=== PATIENT | female | born 1965 | race Caucasian/White ===

== ENCOUNTER 2019-06-03 11:45 | Outpatient (CLI) | payer MEDICARE, SELFPAY ==
[2019-06-03 12:58] LABS: Alanine Aminotransferase 37 U/L (4-35); Albumin Level 4.8 g/dL (3.5-5.1); Alkaline Phosphatase 144 U/L (38-126); Aspartate Amino Transferase 38 U/L (14-36); Bilirubin,Total 0.3 mg/dL (0.2-1.3); Blood Urea Nitrogen 10 mg/dL (7-17); Calcium 10.2 mg/dL (8.4-10.2); Carbon Dioxide 22 mmol/L (22-30); Chloride 100 mmol/L (98-107); Cholesterol 229 mg/dL (0-200); Estimated Glomerular Filt Rate > 60; Glucose 104 mg/dL (65-105); HDL Direct 56 mg/dL; Potassium 3.7 mmol/L (3.4-5.0); Sodium 135 mmol/L (137-145); Triglycerides 218 mg/dL (<150)
[2019-06-03 13:09] LABS: LDL Cholesterol Direct 154 mg/dL
[2019-06-03 13:28] LABS: Thyroid Stimulating Hormone 0.028 uIU/mL (0.465-4.680)
[2019-06-03 13:36] LABS: Vitamin D 25 Hydroxy 27.3 ng/mL
== END 2019-06-03 11:46 | disposition home or self-care (01) ==
PROVIDERS: PCP Emergency Medicine; Visit Provider Emergency Medicine
DX: E78.2 Mixed hyperlipidemia (principal); R53.83 Other fatigue; E55.9 Vitamin D deficiency, unspecified
CPT/HCPCS: 36415; 80053; 80061; 82306; 84443

== ENCOUNTER 2019-06-23 08:18 | Outpatient (CLI) | payer MEDICARE, SELFPAY ==
--- NOTE | ~2019-06-23 | US_ITS ---
EXAMINATION: US thyroid DATE: 06/23/2019 08:56 INDICATION: Abnormal thyroid labs TECHNIQUE: Multiple ultrasound images of the thyroid were obtained. COMPARISON: None. FINDINGS: The right thyroid lobe measures 4.7 x 2.6 x 1.8 cm. The left thyroid lobe measures 4.6 x 2.0 x 2.1 c m. Predominantly solid hypoechoic well-defined wider than tall nodules without echogenic foci in bot h the left and right thyroid lobes (TI-RADS 4, moderately suspicious , FNA if >=1.5 cm, annual follow up is >1 cm) measuring up to 9 mm in maximal dimensions in the right thyroid lobe and 9 mm and 7 mm i n the left thyroid lobe. There is normal echotexture, echogenicity and vascular flow throughout the t hyroid gland. IMPRESSION: 1. Subcentimeter bilateral TI-RADS 4 thyroid nodules which do not exceed size criteria for either bio psy or follow-up. Reviewed, dictated and finalized at location A. CLOSER IMPRESSION: 1. Subcentimeter bilateral TI-RADS 4 thyroid nodules which do not exceed size c riteria for either biopsy or follow-up.
[2019-06-23 10:11] LABS: Free T4 Free Thyroxine 1.35 ng/mL (0.78-2.19)
== END 2019-06-23 08:19 | disposition home or self-care (01) ==
LOC: ANHIMG 08:22
PROVIDERS: PCP Emergency Medicine; Visit Provider Emergency Medicine
DX: E04.2 Nontoxic multinodular goiter (principal); R94.6 Abnormal results of thyroid function studies; R79.89 Other specified abnormal findings of blood chemistry
CPT/HCPCS: 36415; 76536; 84439; 84443

== ENCOUNTER 2020-07-02 10:03 | Outpatient (CLI) | payer MEDICARE, SELFPAY ==
--- NOTE | ~2020-07-02 | MM_ITS ---
EXAMINATION: MM screening [facility] BI w july HISTORY: Screening TECHNIQUE: Craniocaudal and mediolateral oblique 3-D tomosynthesis images were obtained and synthetic 2-D images were generated. CAD analysis was submitted and interpreted. COMPARISON: 03/05/2019 BREAST PARENCHYMAL COMPOSITION: The breasts are heterogenously dense, which may obscure small masses. FINDINGS: There is no evidence of suspicious mass, calcification, or architectural distortion to sugg est malignancy in either breast. There has been no suspicious interval change. IMPRESSION: 1. No mammographic evidence of malignancy. 2. Recommend routine screening mammography in one year. BI-RADS Category 1: Negative Reviewed, dictated and finalized at location A. BASEBALL SEWER
[2020-07-02 10:26] LABS: Thyroid Stimulating Hormone 0.446 uIU/mL (0.465-4.680)
[2020-07-02 11:23] LABS: Alanine Aminotransferase 78 U/L (4-35); Albumin Level 4.3 g/dL (3.5-5.1); Alkaline Phosphatase 132 U/L (38-126); Anion Gap 9 mmol/L (8-16); Aspartate Amino Transferase 78 U/L (14-36); Bilirubin,Total 0.4 mg/dL (0.2-1.3); Blood Urea Nitrogen 10 mg/dL (7-17); Calcium 9.6 mg/dL (8.4-10.2); Carbon Dioxide 23 mmol/L (22-30); Chloride 106 mmol/L (98-107); Cholesterol 220 mg/dL (0-200); Estimated Glomerular Filt Rate > 60; Glucose 159 mg/dL (65-105); HDL Direct 49 mg/dL; Potassium 3.6 mmol/L (3.4-5.0); Sodium 138 mmol/L (137-145); Triglycerides 132 mg/dL (<150)
[2020-07-02 11:36] LABS: LDL Cholesterol Direct 151 mg/dL
== END 2020-07-02 10:04 | disposition home or self-care (01) ==
PROVIDERS: PCP Emergency Medicine; Visit Provider Emergency Medicine
DX: Z12.31 Encounter for screening mammogram for malignant neoplasm of breast (principal); R79.89 Other specified abnormal findings of blood chemistry; E78.5 Hyperlipidemia, unspecified
CPT/HCPCS: 36415; 77063; 77067; 80053; 80061; 84443

== ENCOUNTER 2020-10-06 12:35 | Outpatient (CLI) | payer MEDICARE, SELFPAY ==
[2020-10-06 13:27] LABS: T4 Thyroxine 9.21 ug/dL (5.53-11.0)
[2020-10-06 13:38] LABS: Free T4 Free Thyroxine 0.92 ng/mL (0.78-2.19)
[2020-10-06 13:41] LABS: Thyroid Stimulating Hormone < 0.015 uIU/mL (0.465-4.680)
[2020-10-06 14:53] LABS: Erythrocyte Sedimentation Rate 6 mm/hr (0-20)
[2020-10-08 18:21] LABS: Thyrotropin Receptor Antibody 1.18 IU/L (<=2.00)
[2020-10-09 05:04] LABS: Thyroid Peroxidase Antibodies 1 IU/mL (<9)
== END 2020-10-06 12:36 | disposition home or self-care (01) ==
PROVIDERS: PCP Emergency Medicine; Visit Provider Internal Medicine Endocrinology, Diabetes & Metabolism
DX: E05.90 Thyrotoxicosis, unspecified without thyrotoxic crisis or storm (principal)
CPT/HCPCS: 36415; 83519; 84436; 84439; 84443; 84480; 85652; 86376

== ENCOUNTER 2020-10-11 16:14 | Outpatient (CLI) | payer MEDICARE, SELFPAY ==
--- NOTE | ~2020-10-11 | US_ITS ---
US thyroid INDICATION: Dysphasia and enlarged thyroid. TECHNIQUE: Real-time sonographic images of the thyroid gland were obtained. COMPARISON: Ultrasound dated 06/23/2019 FINDINGS: The right thyroid lobe measures 3.5 x 2.5 x 1.5 cm. The left thyroid lobe measures 4.5 x 2 x 1.5 cm. There are bilateral solid hypoechoic well-defined masses in both lobes which are wider good n tall without echogenic foci, TIRads 4. Largest in the right lobe measures 8 mm maximum dimension an d on the left measures 1 cm. No significant interval change. There is normal vascular flow in both lo bes. IMPRESSION: 1. . Stable centimeter or less bilateral TI-Rads for thyroid nodules which do not exceed size criter ia for biopsy. Follow-up thyroid ultrasound in 12 months recommended. Reviewed, dictated and finalized at location A. IMPRESSION: 1. . Stable centimeter or less bilateral TI-Rads for thyroid nodules which do not exceed size criteria for biopsy. Follow-up thyroid ultrasound in 12 months recommended.
== END 2020-10-11 16:15 | disposition home or self-care (01) ==
PROVIDERS: PCP Emergency Medicine; Visit Provider Internal Medicine Endocrinology, Diabetes & Metabolism
DX: E04.1 Nontoxic single thyroid nodule (principal)
CPT/HCPCS: 76536

== ENCOUNTER 2020-12-28 10:21 | Outpatient (CLI) | payer MEDICARE, SELFPAY ==
[2020-12-28 11:09] LABS: Alanine Aminotransferase 49 U/L (4-35); Albumin Level 4.6 g/dL (3.5-5.1); Alkaline Phosphatase 145 U/L (38-126); Anion Gap 9 mmol/L (8-16); Aspartate Amino Transferase 40 U/L (14-36); Bilirubin,Total 0.4 mg/dL (0.2-1.3); Blood Urea Nitrogen 10 mg/dL (7-17); Calcium 9.3 mg/dL (8.4-10.2); Carbon Dioxide 22 mmol/L (22-30); Chloride 105 mmol/L (98-107); Cholesterol 221 mg/dL (0-200); Estimated Glomerular Filt Rate > 60; Glucose 139 mg/dL (65-110); HDL Direct 58 mg/dL; Sodium 136 mmol/L (137-145); Triglycerides 149 mg/dL (<150)
[2020-12-28 11:20] LABS: LDL Cholesterol Direct 120 mg/dL
[2020-12-28 11:35] LABS: Thyroid Stimulating Hormone 0.457 uIU/mL (0.465-4.680); Total Triiodothyronine (T3) 1.37 NG/ML (0.97-1.69)
== END 2020-12-28 10:22 | disposition home or self-care (01) ==
PROVIDERS: PCP Emergency Medicine; Referring Provider Internal Medicine Endocrinology, Diabetes & Metabolism; Visit Provider Emergency Medicine
DX: E05.90 Thyrotoxicosis, unspecified without thyrotoxic crisis or storm (principal); Z13.220 Encounter for screening for lipoid disorders; Z13.6 Encounter for screening for cardiovascular disorders
CPT/HCPCS: 36415; 80053; 80061; 84439; 84443; 84480

== ENCOUNTER 2021-02-16 08:07 | Outpatient (CLI) | payer MEDICARE, SELFPAY ==
[2021-02-16 09:45] LABS: Free T4 Free Thyroxine 0.92 ng/mL (0.78-2.19)
== END 2021-02-16 08:08 | disposition home or self-care (01) ==
PROVIDERS: PCP Emergency Medicine; Visit Provider Internal Medicine Endocrinology, Diabetes & Metabolism
DX: E05.90 Thyrotoxicosis, unspecified without thyrotoxic crisis or storm (principal)
CPT/HCPCS: 36415; 84439; 84443

== ENCOUNTER 2021-07-06 11:14 | Outpatient (CLI) | payer MEDICARE, SELFPAY ==
[2021-07-06 12:09] LABS: Hemoglobin A1C 7.4 % (<5.7)
[2021-07-06 12:14] LABS: Alanine Aminotransferase 35 U/L (4-35); Albumin Level 4.8 g/dL (3.5-5.1); Alkaline Phosphatase 158 U/L (38-126); Anion Gap 9 mmol/L (8-16); Aspartate Amino Transferase 33 U/L (14-36); Bilirubin,Total 0.4 mg/dL (0.2-1.3); Blood Urea Nitrogen 10 mg/dL (7-17); Calcium 9.8 mg/dL (8.4-10.2); Carbon Dioxide 25 mmol/L (22-30); Chloride 100 mmol/L (98-107); Cholesterol 216 mg/dL (0-200); Estimated Glomerular Filt Rate > 60; Glucose 146 mg/dL (65-110); HDL Direct 50 mg/dL; Potassium 3.8 mmol/L (3.4-5.0); Sodium 134 mmol/L (137-145); Triglycerides 213 mg/dL (<150)
[2021-07-06 12:24] LABS: LDL Cholesterol Direct 129 mg/dL
== END 2021-07-06 11:15 | disposition home or self-care (01) ==
LOC: ANHLAB 11:18
PROVIDERS: PCP Emergency Medicine; Visit Provider Emergency Medicine
DX: Z13.6 Encounter for screening for cardiovascular disorders (principal); R73.9 Hyperglycemia, unspecified
CPT/HCPCS: 36415; 80053; 80061; 83036

== ENCOUNTER 2021-07-28 10:25 | Outpatient (CLI) | payer MEDICARE, SELFPAY ==
--- NOTE | ~2021-07-28 | MM_ITS ---
EXAMINATION: MM screening [facility] BI w july HISTORY: Screening mammogram TECHNIQUE: Craniocaudal and mediolateral oblique 3-D tomosynthesis images were obtained and synthetic 2-D images were generated. CAD analysis was submitted and interpreted. COMPARISON: 07/02/2020, 03/05/2019 BREAST PARENCHYMAL COMPOSITION: The breasts are heterogeneously dense, which may obscure small masses . FINDINGS: There is no suspicious mass, calcification, or architectural distortion to suggest malignan cy in either breast. There has been no suspicious interval change. IMPRESSION: 1. No mammographic evidence of malignancy. 2. Recommend routine screening mammography in one year. BI-RADS Category 1: Negative Reviewed, dictated and finalized at location A.
== END 2021-07-28 10:26 | disposition home or self-care (01) ==
LOC: ANHIMG 10:28
PROVIDERS: PCP Emergency Medicine; Visit Provider Emergency Medicine
DX: Z12.31 Encounter for screening mammogram for malignant neoplasm of breast (principal)
CPT/HCPCS: 77063; 77067

== ENCOUNTER 2021-11-30 08:09 | Outpatient (CLI) | payer MEDICARE, SELFPAY ==
[2021-11-30 08:55] LABS: Alanine Aminotransferase 36 U/L (6-35); Albumin Level 4.8 g/dL (3.5-5.1); Alkaline Phosphatase 137 U/L (38-126); Anion Gap 11 mmol/L (8-16); Aspartate Amino Transferase 31 U/L (14-36); Bilirubin,Total 0.4 mg/dL (0.2-1.3); Blood Urea Nitrogen 9 mg/dL (7-17); Calcium 9.4 mg/dL (8.4-10.2); Carbon Dioxide 24 mmol/L (22-30); Chloride 103 mmol/L (98-107); Estimated Glomerular Filt Rate > 60; Glucose 170 mg/dL (65-110); Potassium 4.2 mmol/L (3.4-5.0); Sodium 138 mmol/L (137-145)
[2021-11-30 09:22] LABS: Free T4 Free Thyroxine 1.14 ng/mL (0.78-2.19)
[2021-12-05 13:55] LABS: Thyroid Stimulating Immunoglob <89 % baseline (<140)
== END 2021-11-30 08:10 | disposition home or self-care (01) ==
PROVIDERS: PCP Emergency Medicine; Visit Provider Internal Medicine Endocrinology, Diabetes & Metabolism
DX: E04.1 Nontoxic single thyroid nodule (principal); E05.90 Thyrotoxicosis, unspecified without thyrotoxic crisis or storm; R74.01 Elevation of levels of liver transaminase levels
CPT/HCPCS: 36415; 80053; 84439; 84443; 84445

== ENCOUNTER 2022-02-21 00:20 | Day surgery (SDC) | payer MEDICARE, SELFPAY ==
[2022-02-08 14:53] VITALS: BMI 35.1
[2022-02-21 10:57] VITALS: BP 138/63; PULSE 89; RESP 20; TEMP 36.3; O2SAT 96
--- NOTE | 2022-02-21 11:03 | WPDANESEPPF ---
Anes - Initial Pre Proc Eval Procedure: Operation Date: 02/21/22 12:30 Proposed Procedures p Screening Colonoscopy - Franki Cardoso MD Date/Time: 02/21/22 11:03 Surgeon: Franki Cardoso MD Pre Op Diagnosis: hx colon polyps, family hx colon ca Patient Data Age: 56 Gender: F Height: 1.7 m Weight: 100.5 kg Last Vital Signs Temp 36.3 C L 02/21/22 10:57 Pulse 89 02/21/22 10:57 Resp 20 02/21/22 10:57 BP 138/63 02/21/22 10:57 Pulse Ox 96 02/21/22 10:57 O2 Del Method Room Air 02/21/22 10:57 Allergies Allergy/AdvReac Type Severity Reaction Status Date / Time No Known Allergies Allergy Verified 02/08/22 14:48 Home Medications Medication Instructions Recorded Confirmed Type olanzapine 10 mg tablet 10 mg PO DAILY 06/05/19 02/08/22 History doxepin 50 mg capsule See Rx Instructions .Route 02/03/20 02/08/22 Rx .COMPLEX #90 caps methimazole 5 mg tablet 5 mg PO DAILY #90 tabs 11/15/21 02/08/22 Rx metoprolol succinate 50 mg 50 mg PO BID #180 tabs 01/11/22 02/08/22 Rx tablet,extended release 24 hr amlodipine 10 mg tablet See Rx Instructions .Route 02/08/22 02/08/22 Rx .COMPLEX #90 tabs famotidine 20 mg tablet See Rx Instructions .Route 02/08/22 02/08/22 Rx .COMPLEX #90 tabs hydrochlorothiazide 12.5 mg tablet See Rx Instructions .Route 02/08/22 02/08/22 Rx .COMPLEX #90 tabs Patient hx anesthesia problems: none Family hx anesthesia problems: none Results Review: All pre-operative results and documents have been reviewed as part of the pre-operative evaluation. [facility] Past Medical History Medical History Abnormal LFTs Acute pain of both knees Body mass index [BMI] 37.0-37.9, adult (12/19/16) Body mass index [BMI] 38.0-38.9, adult (12/18/17) Chest pain Hyperlipidemia, unspecified Nasal congestion Pain in left knee Psychosis Sore throat Vitamin D deficiency Family History Family History Father Malignant neoplasm of prostate, Onset Age: 88 Other Cancer Hyperglycemia Hypertension Thyroid disease Social History Social History Smoking status: Current every day smoker Tobacco type: cigarettes Second hand tobacco smoke exposure: No Alcohol intake: never Substance use: never Substance use type: does not use Living arrangements: alone Gender identity (if verbalized by the patient): Female Spiritual care concerns: No Agree to blood products: Yes Anes - Eval Final PreProcedure Day of Procedure 02/21/22 11:03 Patient weight: obese Heart: regular rate and rhythm Lungs: clear to auscultation Airway: Mallampati scale class II Last oral intake: >/= 8 hours ASA classification: III Emergent: no Anesthetic plan: proceed Anesthesia type and monitoring: general GIVS and standard monitoring Results Review: All pre-operative results and documents have been reviewed as part of the pre-operative evaluation. Informed Consent: The patient's anesthetic plan and its attendant risks and benefits were discussed with the patient/family/POA. Questions were solicited and answers provided to the satisfaction of the patient/family/POA.
[2022-02-21] MEDS: LACTATED RINGERS 1,000 ML 150 ML IV CONT (11:10)
--- NOTE | 2022-02-21 12:00 | PM.HPGS ---
History of Present Illness History of Present Illness Consent: Risks, benefits, and alternatives have been discussed and questions answered. Patient agrees to proceed with procedure. Chief complaint: hx colon polyps, family hx colon ca Narrative: Naima Aranda is a 56 year old female with colon polyp 8 years ago, also sister had colon cancer Review of Systems Constitutional: Constitutional: Denies headache(s) and Denies weakness Eyes: Eyes: Denies blurry vision ENT: Reports Normal hearing present, Denies headache(s) and Denies neck pain Cardiovascular: Cardiovascular: Denies chest pain and Denies dyspnea Respiratory: Respiratory: Denies dyspnea Gastrointestinal: Gastrointestinal: Reports no additional gastrointestinal complaints Genitourinary: Genitourinary: Denies dysuria Musculoskeletal: Musculoskeletal: Denies neck pain Integumentary/Breasts: Skin/Breast: Denies dry skin Neurologic: Reports Normal hearing present, Denies headache(s) and Denies weakness Psychiatric: Psychiatric: Denies anxiety Endocrine: Endocrine: Denies change in body appearance Hematologic/Lymphatic: Hematologic/Lymphatic: Denies easy bleeding Allergic/Immunologic: Allergic/Immunologic: Denies urticaria PMFSH Past Medical History Medical History Abnormal LFTs Acute pain of both knees Body mass index [BMI] 37.0-37.9, adult (12/19/16) Body mass index [BMI] 38.0-38.9, adult (04/16/17) Chest pain Hyperlipidemia, unspecified Nasal congestion Pain in left knee Psychosis Sore throat Vitamin D deficiency Family History Family History Father Malignant neoplasm of prostate, Onset Age: 88 Other Cancer Hyperglycemia Hypertension Thyroid disease Social History Social History Smoking status: Current every day smoker Tobacco type: cigarettes Second hand tobacco smoke exposure: No Alcohol intake: never Substance use: never Substance use type: does not use Living arrangements: alone Gender identity (if verbalized by the patient): Female Spiritual care concerns: No Agree to blood products: Yes Meds Home Medications and Allergies Home Medications Medication Instructions Recorded Confirmed Type olanzapine 10 mg tablet 10 mg PO DAILY 06/05/19 02/08/22 History doxepin 50 mg capsule See Rx Instructions .Route 02/03/20 02/08/22 Rx .COMPLEX #90 caps methimazole 5 mg tablet 5 mg PO DAILY #90 tabs 11/15/21 02/08/22 Rx metoprolol succinate 50 mg 50 mg PO BID #180 tabs 01/11/22 02/08/22 Rx tablet,extended release 24 hr amlodipine 10 mg tablet See Rx Instructions .Route 02/08/22 02/08/22 Rx .COMPLEX #90 tabs famotidine 20 mg tablet See Rx Instructions .Route 02/08/22 02/08/22 Rx .COMPLEX #90 tabs hydrochlorothiazide 12.5 mg tablet See Rx Instructions .Route 02/08/22 02/08/22 Rx .COMPLEX #90 tabs Allergies Allergy/AdvReac Type Severity Reaction Status Date / Time No Known Allergies Allergy Verified 02/08/22 14:48 Vital Signs Vital Signs - 24 hr 02/21/22 10:57 Temperature 97.4 F L Pulse Rate 89 Respiratory Rate 20 Blood Pressure 138/63 Pulse Oximetry 96 Oxygen Delivery Room Air Exam Const: General: comfortable and no acute distress HENMT: Face/Nose/Sinus: Normal nares present Eyes: General: appearance normal, both eyes and all related structures Neck: Neck: no JVD Resp: Auscultation: clear to auscultation bilaterally Cardio: Rate: regular rate Rhythm: regular rhythm GI: Inspection: non-distended GI Palp: Yes Soft to palpation Skin: General skin exam: normal color Neuro: General: gait normal Speech: normal speech Extrem: General: normal to inspection Psych: Mental Status: mental status grossly normal Assessment and Plan Assessment and plan (1) Encounter for screening colonos
[2022-02-21 12:31] VITALS: BP 123/63; PULSE 80; RESP 20; O2SAT 96
[2022-02-21 12:41] VITALS: BP 124/76; PULSE 70; RESP 20; O2SAT 95
[2022-02-21 12:51] VITALS: BP 134/86; PULSE 72; RESP 20; O2SAT 96
== END 2022-02-21 13:01 | disposition home or self-care (01) ==
PROVIDERS: PCP Emergency Medicine; Visit Provider Internal Medicine Gastroenterology
PROC: 0DJD8ZZ Inspection of Lower Intestinal Tract, Via Natural or Artificial Opening Endoscopic (ICD-10-PCS; CPT 45378; principal; 2022-02-21 12:30)
DX: Z12.11 Encounter for screening for malignant neoplasm of colon (principal); D12.4 Benign neoplasm of descending colon; K63.5 Polyp of colon; K64.8 Other hemorrhoids; Z80.0 Family history of malignant neoplasm of digestive organs; E78.5 Hyperlipidemia, unspecified; F17.210 Nicotine dependence, cigarettes, uncomplicated; E66.9 Obesity, unspecified; Z68.34 Body mass index [BMI] 34.0-34.9, adult
CPT/HCPCS: 45385; 88305; J2704; J7120

== ENCOUNTER 2022-08-30 07:43 | Outpatient (CLI) | payer MEDICARE, SELFPAY ==
[2022-08-30 08:42] LABS: Cholesterol 215 mg/dL (0-200); HDL Direct 52 mg/dL; Triglycerides 212 mg/dL (<150)
[2022-08-30 08:45] LABS: Alanine Aminotransferase 53 U/L (6-35); Albumin Level 4.8 g/dL (3.5-5.1); Alkaline Phosphatase 117 U/L (38-126); Anion Gap 10 mmol/L (8-16); Aspartate Amino Transferase 39 U/L (14-36); Bilirubin,Total 0.4 mg/dL (0.2-1.3); Blood Urea Nitrogen 7 mg/dL (7-17); Calcium 9.5 mg/dL (8.4-10.2); Carbon Dioxide 25 mmol/L (22-30); Chloride 105 mmol/L (98-107); Estimated Glomerular Filt Rate > 60; Glucose 168 mg/dL (65-110); Sodium 140 mmol/L (137-145)
[2022-08-30 08:53] LABS: LDL Cholesterol Direct 131 mg/dL
[2022-08-30 09:16] LABS: Free T4 Free Thyroxine 1.13 ng/mL (0.78-2.19)
[2022-08-30 12:44] LABS: Hemoglobin A1C 8.1 % (<5.7)
[2022-09-03 23:41] LABS: Vitamin D 1,25 (OH)2 Total <8 pg/mL (18-72); Vitamin D2 1,25 (OH)2 <8 pg/mL; Vitamin D3 1,25 (OH)2 <8 pg/mL
== END 2022-08-30 07:44 | disposition home or self-care (01) ==
PROVIDERS: PCP Emergency Medicine; Referring Provider Internal Medicine Endocrinology, Diabetes & Metabolism; Visit Provider Emergency Medicine
DX: E04.1 Nontoxic single thyroid nodule (principal); E55.9 Vitamin D deficiency, unspecified; E05.90 Thyrotoxicosis, unspecified without thyrotoxic crisis or storm; R73.9 Hyperglycemia, unspecified; R53.83 Other fatigue
CPT/HCPCS: 36415; 80053; 80061; 82652; 83036; 84439; 84443

== ENCOUNTER 2022-09-06 09:21 | Outpatient (CLI) | payer MEDICARE, MEDICAID, SELFPAY ==
--- NOTE | ~2022-09-06 | US_ITS ---
EXAMINATION: US thyroid DATE: 09/06/2022 09:47 INDICATION: Nontoxic single thyroid nodule TECHNIQUE: Multiple ultrasound images of the thyroid were obtained. COMPARISON: 10/11/2020 FINDINGS: The right thyroid lobe measures 5.1 x 2.7 x 2.1 cm. The left thyroid lobe measures 5.2 x 1.8 x 2.0 c m. Minimal nonsignificant increase in size of a now 1 cm wider than tall solid, now isoechoic nodule in the mid right thyroid which is wider than tall with smooth margins (TI-RADS 3, mildly suspicious , FNA if >=2.5 cm, annual followup is >=1.5 cm). 1.1 cm wider than tall solid very hypoechoic nodule with smooth margins in the inferior left thyroid (TI-RADS 4, moderately suspicious , FNA if >=1.5 cm, annual followup is >=1 cm). 8 mm wide than tall mixed solid and cystic nodule with and isoechoic mary grace id component and smooth well-defined margins (TI-RADS 2, not suspicious, no FNA recommended). There i s normal echotexture, echogenicity and vascular flow throughout the surrounding thyroid gland. IMPRESSION: 1. No significant change in a few small bilateral thyroid nodules. Recommend continued annual ultraso und follow-up for the 1.1 cm TI RADS 4 left thyroid nodule. Reviewed, dictated and finalized at location A. IMPRESSION: 1. No significant change in a few small bilateral thyroid nodules. Recommend co ntinued annual ultrasound follow-up for the 1.1 cm TI RADS 4 left thyroid nodul shayan
== END 2022-09-06 09:22 | disposition home or self-care (01) ==
LOC: ANHIMG 09:23
PROVIDERS: PCP Emergency Medicine; Visit Provider Internal Medicine Endocrinology, Diabetes & Metabolism
DX: E04.1 Nontoxic single thyroid nodule (principal); E05.90 Thyrotoxicosis, unspecified without thyrotoxic crisis or storm
CPT/HCPCS: 76536

== ENCOUNTER 2022-09-26 09:38 | Outpatient (CLI) | payer MEDICARE, MEDICAID, SELFPAY ==
--- NOTE | ~2022-09-26 | MM_ITS ---
EXAMINATION: MM screening [facility] BI w july HISTORY: Screening mammogram TECHNIQUE: Craniocaudal and mediolateral oblique 3-D tomosynthesis images were obtained and synthetic 2-D images were generated. CAD analysis was submitted and interpreted. COMPARISON: 07/28/2021, 07/02/2020, 03/05/2019 bilateral screening mammogram examinations BREAST PARENCHYMAL COMPOSITION: There are scattered areas of fibroglandular density. FINDINGS: Multiple bilateral benign calcifications are present. Th. There is no evidence of suspiciou s mass, calcification, or architectural distortion to suggest malignancy in either breast. There has been no suspicious interval change. IMPRESSION: 1. No mammographic evidence of malignancy. 2. Recommend routine screening mammography in one year. Reviewed, dictated and finalized at location A.
== END 2022-09-26 09:39 | disposition home or self-care (01) ==
LOC: ANHIMG 09:40
PROVIDERS: PCP Emergency Medicine; Visit Provider Emergency Medicine
DX: Z12.31 Encounter for screening mammogram for malignant neoplasm of breast (principal)
CPT/HCPCS: 77063; 77067

== ENCOUNTER 2023-03-02 10:47 | Outpatient (CLI) | payer MEDICARE, MEDICAID, SELFPAY ==
[2023-03-02 11:52] LABS: Creatinine Urine 43.6 mg/dL
[2023-03-02 11:54] LABS: Alanine Aminotransferase 54 U/L (6-35); Albumin Level 4.9 g/dL (3.5-5.1); Alkaline Phosphatase 116 U/L (38-126); Anion Gap 9 mmol/L (8-16); Aspartate Amino Transferase 31 U/L (14-36); Bilirubin,Total 0.5 mg/dL (0.2-1.3); Blood Urea Nitrogen 11 mg/dL (7-17); Carbon Dioxide 29 mmol/L (22-30); Chloride 98 mmol/L (98-107); Cholesterol 163 mg/dL (0-200); Estimated Glomerular Filt Rate > 60; Glucose 86 mg/dL (65-110); HDL Direct 64 mg/dL; Potassium 3.7 mmol/L (3.4-5.0); Sodium 136 mmol/L (137-145); Triglycerides 75 mg/dL (<150)
[2023-03-02 12:06] LABS: LDL Cholesterol Direct 80 mg/dL
[2023-03-02 12:11] LABS: MALB Creatinine Ratio < 13.8 mg/g (0-30); Microalbumin Urine Random < 6.0 mg/L (0-16.7)
[2023-03-02 12:11] LABS: Free T4 Free Thyroxine 0.95 ng/mL (0.78-2.19); Vitamin D 25 Hydroxy 51.1 ng/mL
== END 2023-03-02 10:48 | disposition home or self-care (01) ==
PROVIDERS: PCP Emergency Medicine; Visit Provider Internal Medicine Endocrinology, Diabetes & Metabolism
DX: E04.1 Nontoxic single thyroid nodule (principal); E11.65 Type 2 diabetes mellitus with hyperglycemia; E53.8 Deficiency of other specified B group vitamins; R74.01 Elevation of levels of liver transaminase levels; R79.89 Other specified abnormal findings of blood chemistry; Z79.899 Other long term (current) drug therapy
CPT/HCPCS: 36415; 80053; 80061; 82043; 82306; 82607; 84439; 84443

== ENCOUNTER 2023-08-01 09:21 | Outpatient (CLI) | payer MEDICARE, SELFPAY ==
[2023-08-01 10:10] LABS: Alanine Aminotransferase 44 U/L (6-35); Alkaline Phosphatase 105 U/L (38-126); Anion Gap 7 mmol/L (4-12); Aspartate Amino Transferase 30 U/L (14-36); Bilirubin,Total 0.4 mg/dL (0.2-1.3); Blood Urea Nitrogen 15 mg/dL (7-17); Calcium 10.2 mg/dL (8.4-10.2); Carbon Dioxide 31 mmol/L (22-30); Chloride 99 mmol/L (98-107); Cholesterol 144 mg/dL (0-200); Estimated Glomerular Filt Rate > 60; Glucose 107 mg/dL (65-110); HDL Direct 67 mg/dL; Potassium 3.8 mmol/L (3.4-5.0); Sodium 137 mmol/L (137-145); Triglycerides 79 mg/dL (<150)
[2023-08-01 10:21] LABS: LDL Cholesterol Direct 68 mg/dL
[2023-08-01 10:54] LABS: Vitamin D 25 Hydroxy 59.7 ng/mL
== END 2023-08-01 09:22 | disposition home or self-care (01) ==
LOC: ANHLAB 09:24
PROVIDERS: PCP Emergency Medicine; Visit Provider Emergency Medicine
DX: E11.9 Type 2 diabetes mellitus without complications (principal); E78.5 Hyperlipidemia, unspecified; E55.9 Vitamin D deficiency, unspecified; E05.90 Thyrotoxicosis, unspecified without thyrotoxic crisis or storm
CPT/HCPCS: 36415; 80053; 80061; 82306; 83036

== ENCOUNTER 2023-08-15 11:02 | Outpatient (CLI) | payer MEDICARE, SELFPAY ==
[2023-08-15 13:23] LABS: Thyroid Stimulating Hormone 0.843 uIU/mL (0.465-4.680)
[2023-08-15 13:26] LABS: Free T4 Free Thyroxine 1.29 ng/mL (0.78-2.19)
[2023-08-15 14:02] LABS: Creatinine Urine 37.1 mg/dL
[2023-08-15 19:44] LABS: MALB Creatinine Ratio < 16.2 mg/g (0-30); Microalbumin Urine Random < 6.0 mg/L (0-16.7)
== END 2023-08-15 11:03 | disposition home or self-care (01) ==
LOC: ANHWCLAB 11:04
PROVIDERS: PCP Emergency Medicine; Visit Provider Internal Medicine Endocrinology, Diabetes & Metabolism
DX: E05.90 Thyrotoxicosis, unspecified without thyrotoxic crisis or storm (principal); E11.9 Type 2 diabetes mellitus without complications
CPT/HCPCS: 36415; 82043; 84439; 84443

== ENCOUNTER 2024-01-02 14:12 | Outpatient (CLI) | payer MEDICARE, SELFPAY ==
--- NOTE | ~2024-01-02 | MM_ITS ---
EXAMINATION: MM screening [facility] BI w july HISTORY: Screening TECHNIQUE: Craniocaudal and mediolateral oblique 3-D tomosynthesis images were obtained and synthetic 2-D images were generated. CAD analysis was submitted and interpreted. COMPARISON: Comparison to multiple prior studies sequentially, with oldest reviewed study dated 08/2020. BREAST PARENCHYMAL COMPOSITION: Not dense: There are scattered areas of fibroglandular density. FINDINGS: There is no evidence of suspicious mass, calcification, or architectural distortion to sugg est malignancy in either breast. There has been no suspicious interval change. IMPRESSION: 1. No mammographic evidence of malignancy. 2. Recommend routine screening mammography in one year. BI-RADS Category 1: Negative Reviewed, dictated and finalized at location B.
[2024-01-02 14:54] LABS: Hemoglobin A1C 6.1 % (<5.7)
[2024-01-02 15:08] LABS: Alanine Aminotransferase 53 U/L (6-35); Albumin Level 4.8 g/dL (3.5-5.1); Alkaline Phosphatase 110 U/L (38-126); Anion Gap 10 mmol/L (4-12); Aspartate Amino Transferase 43 U/L (14-36); Bilirubin,Total 0.4 mg/dL (0.2-1.3); Blood Urea Nitrogen 10 mg/dL (7-17); Calcium 10.7 mg/dL (8.4-10.2); Carbon Dioxide 28 mmol/L (22-30); Chloride 94 mmol/L (98-107); Cholesterol 138 mg/dL (0-200); Estimated Glomerular Filt Rate > 60; Glucose 101 mg/dL (65-110); HDL Direct 60 mg/dL; Potassium 3.7 mmol/L (3.4-5.0); Sodium 132 mmol/L (137-145); Triglycerides 81 mg/dL (<150)
[2024-01-02 15:13] LABS: Creatinine Urine 34.4 mg/dL
[2024-01-02 15:19] LABS: LDL Cholesterol Direct 63 mg/dL
[2024-01-02 15:29] LABS: Vitamin D 25 Hydroxy 49.3 ng/mL
[2024-01-02 15:30] LABS: Microalbumin Urine Random < 6.0 mg/L (0-16.7)
[2024-01-02 15:31] LABS: MALB Creatinine Ratio < 17.4 mg/g (0-30)
== END 2024-01-02 14:13 | disposition home or self-care (01) ==
PROVIDERS: PCP Emergency Medicine; Visit Provider Emergency Medicine
DX: Z12.31 Encounter for screening mammogram for malignant neoplasm of breast (principal); E78.5 Hyperlipidemia, unspecified; E11.9 Type 2 diabetes mellitus without complications; E55.9 Vitamin D deficiency, unspecified
CPT/HCPCS: 36415; 77063; 77067; 80053; 80061; 82043; 82306; 83036

== ENCOUNTER 2024-02-21 08:53 | Outpatient (CLI) | payer MEDICARE, SELFPAY ==
[2024-02-21 10:16] LABS: Albumin Level 4.7 g/dL (3.5-5.1); Anion Gap 10 mmol/L (4-12); Blood Urea Nitrogen 7 mg/dL (7-17); Calcium 9.5 mg/dL (8.4-10.2); Carbon Dioxide 23 mmol/L (22-30); Chloride 101 mmol/L (98-107); Estimated Glomerular Filt Rate > 60; Glucose 109 mg/dL (65-110); Phosphorus 3.7 mg/dL (2.5-4.5); Potassium 3.8 mmol/L (3.4-5.0); Sodium 134 mmol/L (137-145)
[2024-02-21 10:28] LABS: Parathyroid Intact 21.7 pg/mL (14.5-75.2)
[2024-02-22 10:34] LABS: Ionized Calcium 5.4 mg/dL (4.7-5.5)
== END 2024-02-21 08:54 | disposition home or self-care (01) ==
PROVIDERS: PCP Emergency Medicine; Visit Provider Internal Medicine Endocrinology, Diabetes & Metabolism
DX: E05.90 Thyrotoxicosis, unspecified without thyrotoxic crisis or storm (principal); R79.89 Other specified abnormal findings of blood chemistry
CPT/HCPCS: 36415; 80069; 82330; 83970; 84439; 84443

== ENCOUNTER 2024-10-06 12:06 | Outpatient (CLI) | payer MEDICARE, SELFPAY ==
[2024-10-06 12:54] LABS: Alanine Aminotransferase 31 U/L (6-35); Albumin Level 4.7 g/dL (3.5-5.1); Alkaline Phosphatase 106 U/L (38-126); Anion Gap 9 mmol/L (4-12); Aspartate Amino Transferase 32 U/L (14-36); Bilirubin,Total 0.2 mg/dL (0.2-1.3); Blood Urea Nitrogen 9 mg/dL (7-17); Calcium 9.8 mg/dL (8.4-10.2); Carbon Dioxide 25 mmol/L (22-30); Chloride 95 mmol/L (98-107); Estimated Glomerular Filt Rate > 60; Glucose 109 mg/dL (65-110); Potassium 3.8 mmol/L (3.4-5.0); Sodium 129 mmol/L (137-145); Total Protein 7.6 g/dL (6.3-8.2)
[2024-10-06 13:35] LABS: Vitamin D 25 Hydroxy 46.1 ng/mL
== END 2024-10-06 12:07 | disposition home or self-care (01) ==
PROVIDERS: PCP Emergency Medicine; Visit Provider Emergency Medicine
DX: E78.5 Hyperlipidemia, unspecified (principal); R53.83 Other fatigue; E55.9 Vitamin D deficiency, unspecified
CPT/HCPCS: 36415; 80053; 82306; 84443

== ENCOUNTER 2024-10-13 09:18 | Outpatient (CLI) | payer MEDICARE, SELFPAY ==
[2024-10-13 10:23] LABS: Alanine Aminotransferase 38 U/L (6-35); Albumin Level 4.8 g/dL (3.5-5.1); Alkaline Phosphatase 94 U/L (38-126); Anion Gap 9 mmol/L (4-12); Aspartate Amino Transferase 38 U/L (14-36); Bilirubin,Total 0.4 mg/dL (0.2-1.3); Blood Urea Nitrogen 9 mg/dL (7-17); Calcium 9.9 mg/dL (8.4-10.2); Carbon Dioxide 23 mmol/L (22-30); Chloride 102 mmol/L (98-107); Cholesterol 129 mg/dL (0-200); Estimated Glomerular Filt Rate > 60; Glucose 109 mg/dL (65-110); HDL Direct 60 mg/dL; Potassium 3.9 mmol/L (3.4-5.0); Sodium 134 mmol/L (137-145); Total Protein 8.3 g/dL (6.3-8.2); Triglycerides 97 mg/dL (<150)
[2024-10-13 10:34] LABS: LDL Cholesterol Direct 46 mg/dL
[2024-10-13 10:59] LABS: MALB Creatinine Ratio 5.7 mg/g (0-30); Microalbumin Urine Random 9.1 mg/L (0-16.7)
== END 2024-10-13 09:19 | disposition home or self-care (01) ==
PROVIDERS: PCP Emergency Medicine; Visit Provider Emergency Medicine
DX: E78.5 Hyperlipidemia, unspecified (principal); E11.9 Type 2 diabetes mellitus without complications; E87.1 Hypo-osmolality and hyponatremia
CPT/HCPCS: 36415; 80053; 80061; 82043; 83036

== ENCOUNTER 2025-01-19 15:56 | Outpatient (CLI) | payer MEDICARE, SELFPAY ==
--- NOTE | ~2025-01-19 | MM_ITS ---
EXAMINATION: MM screening [facility] BI w july HISTORY: Screening TECHNIQUE: Craniocaudal and mediolateral oblique 3-D tomosynthesis images were obtained and synthetic 2-D images were generated. CAD analysis was submitted and interpreted. COMPARISON: Comparison to multiple prior studies sequentially, with oldest reviewed study dated 03/05/2019. BREAST PARENCHYMAL COMPOSITION: There are scattered areas of fibroglandular density. FINDINGS: There is no evidence of suspicious mass, calcification, or architectural distortion to suggest malignancy in either breast. Scattered benign-appearing calcifications are present. IMPRESSION: 1. No mammographic evidence of malignancy. 2. Recommend routine screening mammography in one year. BI-RADS Category 2: Benign finding(s). Reviewed, dictated and finalized at location B.
== END 2025-01-19 15:57 | disposition home or self-care (01) ==
PROVIDERS: PCP Emergency Medicine; Visit Provider Emergency Medicine
DX: Z12.31 Encounter for screening mammogram for malignant neoplasm of breast (principal)
CPT/HCPCS: 77063; 77067

== ENCOUNTER 2025-02-06 10:14 | Outpatient (CLI) | payer MEDICARE, SELFPAY ==
--- NOTE | ~2025-02-06 | DEXA_ITS ---
Bone Density Report Name: MIRANDA BECKHAM Age: 59 Sex: Female Ethnicity: White Date of : 1965 Indication: postmenopausal; screening for osteoporosis; height loss; Referring Provider: GEO DORMAN Study: Bone densitometry was performed. Exam Date: February 06, 2025 Accession number: [id number] Bone Density: Region BMD T-score Z-score Classification AP Spine(L1-L4) 1.248 1.8 3.4 Normal Femoral Neck (Left) 0.852 0.0 1.4 Normal Total Hip (Left) 1.014 0.6 1.6 Normal Femoral Neck (Right) 0.757 -0.8 0.5 Normal Total Hip (Right) 1.026 0.7 1.7 Normal Total Hip Mean 1.020 0.7 1.7 Normal World Health Organization criteria for BMD impression classify patients as: Normal (T-score at or above -1.0), Osteopenia (T-score between -1.0 and -2.5), or Osteoporosis (T-score at or below -2.5). 10-year Fracture Risk: FRAX not reported because: All T-scores for Spine Total, Hip Total, Femoral Neck at or above -1.0 Clinical Information Provided by Patient: Smokes Has used the following medications: multivitamin Patient maximum height was 68 Menopause Age: 48 Drinks caffeinated beverages Onset of menses at age 13 Number of children 4 Impression: The patient has normal bone mass. The patient has risk factors, including: smoking. Discussion: BONE DENSITY IS ABOVE THE MINIMUM DESIRABLE LEVEL AT ALL SKELETAL SITES TESTED. This patient?s bone mineral density is above the minimum desirable level (T-score -1.0 or better) at all sites measured. The patient should follow a healthful lifestyle (good nutrition with adequate calcium and vitamin D, and appropriate weight-bearing exercise). Follow-Up: Consider repeating this study in 5 years or sooner if there is some new clinical indication. Reported by: BARON on 02/06/2025 11:08:00 AM. Reviewed, dictated and finalized at location A.
== END 2025-02-06 10:15 | disposition home or self-care (01) ==
LOC: ANHFOHIMG 10:16
PROVIDERS: PCP Emergency Medicine; Visit Provider Internal Medicine Endocrinology, Diabetes & Metabolism
DX: Z78.0 Asymptomatic menopausal state (principal)
CPT/HCPCS: 77080